=== PATIENT | male | born 1965 | race Two or more races ===

== ENCOUNTER 2020-06-03 05:50 | Day surgery (SDC) | payer OTHER ==
[~2020-06-03 05:50] MED LIST: CLONAZEPAM0.5 MG PO; HYDROCHLOROTH12.5 MG PO; LOSARTAN POTASS50 MG PO; PEPCID AC20 MG PO; RESTORIL30 M1 PO; RISPERIDONE O0.25 MG PO; SERTRA PO
[2020-06-03] MEDS ORDERED: ULTRAM50 MG PO (08:19)
== END 2020-06-03 11:58 | disposition home or self-care (01) ==
LOC: CIR.AMB 05:50 → EDBD 08:00 → CIR.AMB 08:00
PROVIDERS: ATTEND Surgery
DX: L72.11 Pilar cyst (principal); Z20.828 Contact with and (suspected) exposure to other viral communicable diseases